=== PATIENT | female | born 1945 | race Caucasian/White ===

== ENCOUNTER 2023-02-24 01:38 | Inpatient (IN) | payer OTHER, MEDICAID ==
[~2023-02-24] VITALS: Ht 160 cm; Wt 57.6 kg
[2023-02-24] VITALS (26 sets, daily range): BP systolic 93–145; PULSE 62–100; RESP 14–25; TEMP 97–97.7; O2SAT 91–100
[~2023-02-24 01:38] MED LIST: APIX5TAB PO; CALMO120 TP; CRAN450T9 PO; DOCU-144 PO; FOLI-134 PO; HYDR-3917 PO; LEVO125T8 PO; LISI30TA36 PO; METH40VI46 IVP; MOM PO; NEU300 PO; NITSL SL; PIPE4.5F2 IV; POLY17PO44 PO; PRO40 PO; PROP10TA10 PO; PROXL60 PO; SILD20TA PO; SIMV-46 PO; VITD2000 PO
[2023-02-24] MEDS ORDERED: NOREPINEPHRINE 4 MG/4 ML VIAL IV ONE ×3 (02:01→07:46)
[2023-02-24 02:11] LABS: BASOPHILS % (AUTO) 0.4 % (0.0-2.0); EOSINOPHILS # (AUTO) 0.1 K/uL (0.0-0.4); EOSINOPHILS % (AUTO) 0.5 % (0.0-4.0); HEMATOCRIT 31.2 % (36-48); HEMOGLOBIN 9.7 g/dL (12.0-16.0); LYMPHOCYTES # (AUTO) 0.4 K/uL (1.0-5.5); LYMPHOCYTES % (AUTO) 3.4 % (20.5-51.5); MEAN CORPUSCULAR HEMOGLOBIN 30 pg (27-31); MEAN CORPUSCULAR HGB CONC 31 % (32-36); MEAN CORPUSCULAR VOLUME 95 fL (79.0-98.0); MONOCYTES # (AUTO) 0.6 K/uL (0.0-1.0); MONOCYTES % (AUTO) 5.5 % (1.7-9.3); NEUTROPHILS # (AUTO) 9.6 K/uL (1.8-7.7); NEUTROPHILS % (AUTO) 90.2 % (40.0-70.0); PLATELET COUNT (AUTO) 275 K/uL (130-430); RED BLOOD CELL COUNT(AUTO) 3.28 MIL/uL (4.2-6.2); WHITE BLOOD COUNT (AUTO) 10.7 K/uL (4.8-10.8)
[2023-02-24] MEDS ORDERED: NOREPINEPHRINE BITARTRATE 4 MG in NS 246 ML IV ONE (02:15)
[2023-02-24] MEDS ORDERED: FENTANYL CITRATE-0.9 % NACL/PF 100 ML IV PRN ×2 (02:15→12:45)
[2023-02-24] MEDS ORDERED: ROCURONIUM BROMIDE 10 MG/ML (ZEMURON) IV ONE (02:15)
[2023-02-24] MEDS ORDERED: ETOMIDATE 20 MG/ 10 ML VIAL (AMIDATE) IVP ONE (02:15)
[2023-02-24] MEDS ORDERED: PROPOFOL DRIP 100 ML IV ONE (02:15)
[2023-02-24 02:31] LABS: INR 1.1 (0.8-1.2); PROTHROMBIN TIME 11.6 SECS (9.5-12.5)
[2023-02-24 02:36] LABS: ACETAMINOPHEN 2 ug/mL (1-30); ALANINE AMINOTRANSFERASE 13 U/L (12-78); ANION GAP -1 (5-15); ASPARTATE AMINOTRANSFERASE 11 U/L (10-37); CALCIUM 8.3 mg/dL (8.4-11.0); CHLORIDE 102 mmol/L (98-107); GLUCOSE 142 mg/dL (74-106); LIPASE 30 U/L (73-393); PHOSPHORUS 4.8 mg/dL (2.7-4.5); THYROID STIMULATING HORMONE 2.32 uIu/mL (0.36-3.74); TOTAL BILIRUBIN 0.4 mg/dL (0.0-1.0); UREA NITROGEN, BLOOD 17 mg/dL (8-21)
[2023-02-24 03:39] LABS: BILIRUBIN,URINE NEGATIVE (NEGATIVE); BLOOD, URINE 1+ (NEGATIVE); COLOR,URINE YELLOW (YELLOW); GLUCOSE,URINE NEGATIVE (NEGATIVE); KETONES,URINE NEGATIVE (NEGATIVE); LEUKOCYTE ESTERASE ,URINE 2+ (NEGATIVE); NITRITE, URINE NEGATIVE (NEGATIVE); PROTEIN URINE 1+ (NEGATIVE); UROBILINOGEN,URINE 0.2 (0.2-1.0)
[2023-02-24] MEDS ORDERED: PIPERACILLIN/TAZO 3.375 GM in NS 50 ML IV ONE (03:45)
[2023-02-24] MEDS ORDERED: VANCOMYCIN HCL 1,000 MG in NS 250 ML IV ONE (03:45)
[2023-02-24 03:58] LABS: BARBITURATE, URINE NEGATIVE (NEG <=200); BENZODIAZEPINE, URINE NEGATIVE (NEG <=150); CANNABINOID, URINE NEGATIVE (NEG <=50); COCAINE, URINE NEGATIVE (NEG <=150); METHAMPHETAMINES SCREEN,URINE NEGATIVE (NEG <=500); OPIATE, URINE NEGATIVE (NEG <=100); PHENCYCLIDINE SCREEN,URINE NEGATIVE (NEG <=25); UR TRICYCLIC ANTIDEPRESSANTS NEGATIVE (NEG <=300); URINE AMPHETAMINE NEGATIVE (NEG <=500); URINE METHADONE NEGATIVE (NEG <=200); URINE OXYCODONE SCREEN NEGATIVE (NEG <=100); URINE PROPOXYPHENE SCREEN NEGATIVE (NEG <=300)
[2023-02-24] MEDS ORDERED: ROCURONIUM BROMIDE 10 MG/ML (ZEMURON) ONE (04:00)
[2023-02-24] MEDS ORDERED: ETOMIDATE 20 MG/ 10 ML VIAL (AMIDATE) ONE (04:00)
[2023-02-24] MEDS ORDERED: PIPERACILLIN/TAZOBACTAM 3.375 GM/VIAL (ZOSYN) IV ONE (04:26)
[2023-02-24] MEDS ORDERED: VANCOMYCIN HCL 1000 MG/VIAL IV ONE (04:26)
[2023-02-24 04:38] LABS: CLARITY/URINE CLOUDY (CLEAR)
[2023-02-24 04:40] LABS: BACTERIA,URINE MODERATE /HPF (None Seen); WBC,URINE 20-50 /HPF (0-3)
[2023-02-24] MEDS ORDERED: SENN8.6T19 PO (05:25)
[2023-02-24] MEDS ORDERED: IPRA3AMP9 INH (05:25)
[2023-02-24] MEDS ORDERED: ZAN4 PO (05:25)
[2023-02-24] MEDS ORDERED: ACET-73 PO (05:25)
[2023-02-24] MEDS ORDERED: BISA10SU61 RC (05:25)
[2023-02-24] MEDS ORDERED: MUPI1OIN5 TP (05:30)
[2023-02-24] MEDS: D5NS 1,000 ML IV SCH ×2 (07:50→18:42)
[2023-02-24] MEDS ORDERED: NOREPINEPHRINE BITARTRATE 4 MG in NS 246 ML IV PRN (08:00)
[2023-02-24] MEDS ORDERED: FUROSEMIDE 40 MG/4 ML VIAL IVP ONE (09:00)
[2023-02-24] MEDS ORDERED: NOREPINEPHRINE BITARTRATE 16 MG in NS 234 ML IV PRN (09:00)
[2023-02-24] MEDS: PROPOFOL DRIP 100 ML IV PRN ×5 (09:49→23:26)
[2023-02-24] MEDS ORDERED: CEFEPIME 2 GM in D5W 100 ML IV ONE (11:00)
[2023-02-24] MEDS: IPRATROPIUM/ALBUTEROL SULFATE 3 ML AMPUL.NEB (DUONEB) INH SCH ×4 (11:23→23:05)
[2023-02-24] MEDS ORDERED: DEXTROSE 50% JECT 50 ML DISP.SYRIN IVP PRN (13:45)
[2023-02-24] MEDS: methylPREDNISolone SOD SUCC/PF 62.5 MG/ML VIAL IVP SCH ×2 (15:33→21:27)
[2023-02-24] MEDS: FUROSEMIDE 40 MG/4 ML VIAL IVP SCH (21:27)
[2023-02-24] MEDS: CEFEPIME 2 GM in D5W 100 ML IV SCH (21:27)
[2023-02-25] VITALS (33 sets, daily range): BP systolic 91–164; PULSE 52–119; RESP 12–24; TEMP 96.4–97.9; O2SAT 91–100
[2023-02-25] MEDS: IPRATROPIUM/ALBUTEROL SULFATE 3 ML AMPUL.NEB (DUONEB) INH SCH ×6 (02:40→23:15)
[2023-02-25] MEDS: D5NS 1,000 ML IV SCH ×3 (02:56→23:35)
[2023-02-25 04:55] LABS: BASOPHILS % (AUTO) 0.3 % (0.0-2.0); HEMATOCRIT 29.4 % (36-48); HEMOGLOBIN 9.3 g/dL (12.0-16.0); LYMPHOCYTES # (AUTO) 0.4 K/uL (1.0-5.5); LYMPHOCYTES % (AUTO) 5.4 % (20.5-51.5); MEAN CORPUSCULAR HEMOGLOBIN 29 pg (27-31); MEAN CORPUSCULAR HGB CONC 32 % (32-36); MEAN CORPUSCULAR VOLUME 92 fL (79.0-98.0); MONOCYTES # (AUTO) 0.2 K/uL (0.0-1.0); MONOCYTES % (AUTO) 2.4 % (1.7-9.3); NEUTROPHILS # (AUTO) 7.3 K/uL (1.8-7.7); NEUTROPHILS % (AUTO) 91.9 % (40.0-70.0); PLATELET COUNT (AUTO) 216 K/uL (130-430); RED BLOOD CELL COUNT(AUTO) 3.21 MIL/uL (4.2-6.2); RED CELL DISTRIBUTION WIDTH 15.8 % (9.0-15.0); WHITE BLOOD COUNT (AUTO) 7.9 K/uL (4.8-10.8)
[2023-02-25] MEDS: methylPREDNISolone SOD SUCC/PF 62.5 MG/ML VIAL IVP SCH ×3 (05:04→23:34)
[2023-02-25 05:12] LABS: ANION GAP 7 (5-15); CHLORIDE 100 mmol/L (98-107); CREATININE 1.07 mg/dL (0.55-1.30); GLUCOSE 162 mg/dL (74-106); UREA NITROGEN, BLOOD 19 mg/dL (8-21)
[2023-02-25] MEDS: INSULIN REGULAR, HUMAN 100 UNITS/ML, 3 ML VIAL (humuLIN R) SUBCUT PRN ×3 (05:13→17:35)
[2023-02-25] MEDS: PROPOFOL DRIP 100 ML IV PRN ×2 (06:40→14:57)
[2023-02-25] MEDS: CEFEPIME 2 GM in D5W 100 ML IV SCH ×2 (08:25→23:31)
[2023-02-25] MEDS: FUROSEMIDE 40 MG/4 ML VIAL IVP SCH ×2 (08:25→23:32)
[2023-02-26] VITALS (23 sets, daily range): BP systolic 66–141; PULSE 48–124; RESP 9–22; TEMP 95.8–97.8; O2SAT 52–100
[2023-02-26] MEDS: IPRATROPIUM/ALBUTEROL SULFATE 3 ML AMPUL.NEB (DUONEB) INH SCH ×2 (03:08→07:12)
[2023-02-26] MEDS: methylPREDNISolone SOD SUCC/PF 62.5 MG/ML VIAL IVP SCH (07:08)
[2023-02-26] MEDS: FUROSEMIDE 40 MG/4 ML VIAL IVP SCH (08:10)
[2023-02-26] MEDS: D5NS 1,000 ML IV SCH (08:11)
[2023-02-26] MEDS: CEFEPIME 2 GM in D5W 100 ML IV SCH (08:12)
[2023-02-26] MEDS ORDERED: BALSAM PERU/CASTOR OIL 56.7 GM OINT...G. TP SCH (09:00)
[2023-02-26] MEDS ORDERED: MORPHINE SULFATE IN 0.9 % NACL 100 ML IV PRN (11:00)
[2023-02-26] MEDS ORDERED: NALOXONE HCL 0.4 MG/ML AMP (NARCAN) IVP PRN (11:00)
== END 2023-02-26 17:35 | DRG 871 ==
LOC: SED 01:38 → SIC 07:31
PROVIDERS: ADMIT Specialist; ATTEND Specialist
PROC: 5A1945Z Respiratory Ventilation, 24-96 Consecutive Hours (ICD-10-PCS; principal; 2023-02-24)
PROC: 06HY33Z Insertion of Infusion Device into Lower Vein, Percutaneous Approach (ICD-10-PCS; 2023-02-24)
PROC: B54BZZA Ultrasonography of Right Lower Extremity Veins, Guidance (ICD-10-PCS; 2023-02-24)
PROC: 0BH17EZ Insertion of Endotracheal Airway into Trachea, Via Natural or Artificial Opening (ICD-10-PCS; 2023-02-24)
DX: A41.9 Sepsis, unspecified organism (principal); J18.9 Pneumonia, unspecified organism; J96.01 Acute respiratory failure with hypoxia; J96.02 Acute respiratory failure with hypercapnia; R65.21 Severe sepsis with septic shock; J44.0 Chronic obstructive pulmonary disease with (acute) lower respiratory infection; Z99.11 Dependence on respirator [ventilator] status; N39.0 Urinary tract infection, site not specified; I48.91 Unspecified atrial fibrillation; Z66 Do not resuscitate; I11.0 Hypertensive heart disease with heart failure; I46.9 Cardiac arrest, cause unspecified; I50.9 Heart failure, unspecified; Z51.5 Encounter for palliative care
CPT/HCPCS: 36415; 36600; 70450-TC; 71045; 76376; 80048; 80053; 80307; 81000; 82140; 82803; 83605; 83690; 83735; 84100; 84443; 84484; 85025; 85610-TC; 87040; 87081; 87086; 93005; 94002; 94003; 94640; 94760; 96365; 96368; 99291; G0480; G0481; G0482; J0692; J1815; J1940; J2270; J2543; J2704; J2930; J3010; J3370; J3490; J7042; J7050; J7060